=== PATIENT | male | born 1970 | race Caucasian/White ===

== ENCOUNTER → 2019-09-02 11:26 | Outpatient (BNVA) | payer SELFPAY | PROVIDERS: Family Provider Family Medicine; PCP Family Medicine; Visit Provider Nurse Practitioner Family | DX: I10 Essential (primary) hypertension (principal); F41.9 Anxiety disorder, unspecified; Z79.899 Other long term (current) drug therapy; E78.5 Hyperlipidemia, unspecified | CPT/HCPCS: 80048; 80061 ==

== ENCOUNTER → 2020-05-14 09:25 | Outpatient (BNVA) | payer SELFPAY | PROVIDERS: Family Provider Family Medicine; PCP Family Medicine; Visit Provider Nurse Practitioner Family | DX: Z51.81 Encounter for therapeutic drug level monitoring (principal) | CPT/HCPCS: 80053 ==

== ENCOUNTER → 2021-06-14 08:59 | Outpatient (BNVA) | payer SELFPAY | PROVIDERS: Family Provider Family Medicine; PCP Family Medicine; Visit Provider Nurse Practitioner Family | DX: Z02.4 Encounter for examination for driving license (principal); E78.2 Mixed hyperlipidemia; I10 Essential (primary) hypertension | CPT/HCPCS: 80053; 80061 ==

== ENCOUNTER → 2021-12-14 14:12 | Outpatient (BNVA) | payer SELFPAY | PROVIDERS: Family Provider Family Medicine; PCP Nurse Practitioner Family; Visit Provider Nurse Practitioner Family | DX: I10 Essential (primary) hypertension (principal); E78.2 Mixed hyperlipidemia; F41.9 Anxiety disorder, unspecified | CPT/HCPCS: 80053; 80061 ==

== ENCOUNTER → 2022-02-07 11:38 | Outpatient (BNVA) | payer SELFPAY | PROVIDERS: Family Provider Family Medicine; PCP Nurse Practitioner Family; Visit Provider Nurse Practitioner Family | DX: E78.2 Mixed hyperlipidemia (principal) | CPT/HCPCS: 80061; 82977; 83615; 84450; 84460 ==

== ENCOUNTER 2022-04-19 13:56 | Outpatient (CLI) | payer OTHER, SELFPAY ==
--- NOTE | 2022-04-19 14:30 | MR_ITS ---
WS: [id number] MRI THORACIC SPINE WITHOUT CONTRAST TECHNIQUE: Sagittal T1, T2 and STIR imaging. Axial T2 imaging. Noncontrast imaging obtained. CLINICAL INFORMATION: M54.6 - Pain in thoracic spine COMPARISON: None. FINDINGS: Mild thoracic curve. Mild thoracic kyphosis. No acute compression fractures. Cord signal is normal. Mild central canal stenosis T9-T10. Moderate central canal stenosis T10-T11 with moderate facet arthr opathy and ligamentum flavum hypertrophy. Prominent facet arthropathy ligamentum flavum hypertrophy T3-T4, T4-T5, T5-T6 eccentric to the LEFT, T6-T7 T9-T10 and T10-T11. Central canal stenosis at T10-T11 appears unchanged since the prior lumbar spine MRI 2019. Mild central canal stenosis at T9-T10 and moderate central canal stenosis at T10-T11. Mild bilateral T10-T11 bony foraminal narrowing. Shallow central protrusion cervical spine sld teacher imaging at C3-C4 with slight contact of the cervical cord and mild to moderate central canal stenosis. Adrenal glands are normal. Normal caliber thoracic aorta. MR/MR thoracic spin wo con* [id number] IMPRESSION: 1. Mild thoracic curve. Mild thoracic kyphosis. No acute compression fractures . 2. Prominent facet arthropathy with ligamentum flavum flavum hypertrophy at m ultiple levels worse at T9-T10 and T10-T11. Mild central canal stenosis T9-T10 and moderate central canal stenosis T10-T11. 3. Additional prominent areas of facet arthropathy and ligamentum flavum hyper trophy described above at T3-T4, T4-T5, T5-T6 eccentric to the LEFT, and T6-T7 4. Mild bilateral bony foraminal narrowing T10-T11. 5. Small central disc protrusion C3-C4 with slight contact of the cervical cor d and mild to moderate central canal stenosis. This can be further evaluated wi cervical spine MRI.
== END 2022-04-19 13:57 | disposition home or self-care (01) ==
PROVIDERS: PCP Nurse Practitioner Family; Visit Provider Nurse Practitioner Family
DX: M54.6 Pain in thoracic spine (principal)
CPT/HCPCS: 72146

== ENCOUNTER 2022-05-18 07:34 | Outpatient (CLI) | payer OTHER, SELFPAY ==
--- NOTE | 2022-05-18 08:00 | MR_ITS ---
WS: [id number] MRI CERVICAL SPINE NONCONTRAST TECHNIQUE: Sagittal T1, T2 and STIR imaging. Axial T2, gradient, and fiesta imaging. CLINICAL INFORMATION: M50.90 - Cervical disc disorder, unspecified, unspecified... COMPARISON: None. FINDINGS: Straightening of the normal cervical lordosis. Disc bulging worse at C3-C4 with indentation on cervic al cord. Mild central canal stenosis. Cord signal is normal. C2-C3: Mild LEFT foraminal narrowing. Mild facet arthropathy. Spinal canal and RIGHT foramen are salvador nt. C3-C4: Broad-based central disc protrusion with indentation on cervical cord. Moderate central canal stenosis progressed compared to previous. Mild facet arthropathy. Mild LEFT and no significant RIGHT foraminal narrowing. C4-C5: Tiny shallow central protrusion. Slight contact of the cervical cord. Mild central canal steno sis. This is progressed compared to previous. Moderate facet arthropathy. Mild RIGHT greater than LEF T foraminal narrowing. C5-C6: Disc osteophyte complex with endplate ridging. Spinal canal is patent. Moderate RIGHT and mild LEFT foraminal narrowing. Moderate facet arthropathy. C6-C7: Tiny shallow LEFT pericentral protrusion. Slight contact of the cervical cord. Spinal canal is patent. Mild facet arthropathy. Mild bilateral bony foraminal narrowing. C7-T1: Mild LEFT bony foraminal narrowing with slight encroachment on the exiting LEFT C8 nerve root. Spinal canal and RIGHT foramen are patent. Mild facet arthropathy. Visualized brain stem structures: Normal. Prevertebral soft tissues: Normal. MR/MR cervical spin wo con* [id number] IMPRESSION: 1. Straightening of the normal cervical lordosis. 2. Moderate central canal stenosis C3-C4 with central disc protrusion progress ed compared to previous. 3. Tiny central protrusion C4-C5 with mild central canal stenosis and slight i ndentation on cervical cord new compared to previous. 4. Tiny LEFT pericentral protrusion with slight indentation on the cervical co rd at C6-C7 progressed compared to previous. 5. Mild bony foraminal narrowing worse at LEFT C3-C4, RIGHT C4-C5, and bilater al C5-C6 worse in the RIGHT. Mild to moderate bilateral C6-C7 and mild LEFT C7- T1 foraminal narrowing.
== END 2022-05-18 07:35 | disposition home or self-care (01) ==
PROVIDERS: PCP Nurse Practitioner Family; Visit Provider Nurse Practitioner Family
DX: M48.02 Spinal stenosis, cervical region (principal); M50.023 Cervical disc disorder at C6-C7 level with myelopathy
CPT/HCPCS: 72141

== ENCOUNTER → 2022-06-08 08:22 | Outpatient (BNVA) | payer OTHER, SELFPAY | PROVIDERS: PCP Nurse Practitioner Family; Referring Provider Nurse Practitioner Family; Visit Provider Physician Assistant | DX: M50.20 Other cervical disc displacement, unspecified cervical region (principal) | CPT/HCPCS: 72050 ==

== ENCOUNTER 2022-06-28 19:03 | Inpatient (IN) | payer OTHER, SELFPAY ==
[2022-06-26 09:51] VITALS: BMI 32.8
--- NOTE | 2022-06-26 10:06 | ANES.PREANE2 ---
Pre-Anesthetic Assessment Height/Weight: Height 1.8 m Weight 106.594 kg Operation Date: 06/28/22 13:45 Proposed Procedures p Spinal Fusion: T10-T11 fusion with decompression,[id number],M50.20, M48.04(Not Applicable) - Agustin Griffin DO s Thoracic Decompression(Not Applicable) - Agustin Griffin, Familial anesthetic complications: None Social Tobacco (chews) and No alcohol Exam alert, oriented x 3, clear to auscultation bilaterally and regular rate & rhythm Airway Mallampati: Class III Dentition: chipped and partials Pulmonary None reported CV/HEM Hypertension None reported Hepatic None reported GI None reported Metabolic None reported Musc/skel Lower Back Pain neck pain Neuropsych Anxiety Anesthetic Plan ASA status: 2 Anesthesia: General Risk of > 500 ml blood loss (7ml/kg in children): No Medications/Allergies Home Medications Medication Instructions Recorded Confirmed Last Taken Type amlodipine 10 mg tablet See Rx Instructions .Route 02/02/22 06/26/22 06/25/22 Rx .COMPLEX #180 tabs buspirone 30 mg tablet 30 mg PO BID #180 tabs 02/02/22 06/26/22 06/26/22 Rx metoprolol tartrate 50 mg tablet 50 mg PO BID #180 tabs 02/02/22 06/26/22 06/25/22 Rx telmisartan 80 mg tablet See Rx Instructions .Route 02/02/22 06/26/22 06/26/22 Rx .COMPLEX #90 tabs simvastatin 10 mg tablet See Rx Instructions .Route 06/05/22 06/26/22 06/25/22 Rx .COMPLEX #60 tabs meloxicam 7.5 mg tablet See Rx Instructions .Route 06/06/22 06/26/22 06/26/22 Rx .COMPLEX #30 tabs Allergies Allergy/AdvReac Type Severity Reaction Status Date / Time No Known Allergies Allergy Verified 06/08/22 08:19 [facility], [facility] Anesthesia Medical History Anxiety HTN (hypertension) Hyperlipidemia Family History Father CAD (coronary artery disease) Hypertension Mother Cancer colon cancer Grandmother Stroke CAD (coronary artery disease) Hypertension Family/Other Cancer Diabetes Hypertension Lung disease Stroke Grandfather Diabetes Hypertension Brother Hypertension Denies family history of Dementia Chronic kidney disease (CKD) Social History Smoking and tobacco status: former smoker Alcohol intake: current Alcohol intake frequency: few times a month Adopted: No Lives independently: Yes Household members: spouse Housing: House Marital status: Data Anesthesia 06/26/22 10:00 Cardiac Studies: No Data to Display
[2022-06-26 10:25] LABS: Blood Urea Nitrogen 9 mg/dL (6-20); Calcium 9.3 mg/dL (8.5-10.5); Carbon Dioxide 26 mmol/L (22-29); Chloride 98 mmol/L (98-107); Glomerular Filtration Rate 78.8 mL/min (90-130); Glucose 118 mg/dL (65-115); Osmolality Calculated 276 mOsm/kg (285-295); Sodium 133 mmol/L (136-145)
[2022-06-28] VITALS (17 sets, daily range): BP systolic 94–164; BP diastolic 53–98; PULSE 62–79; RESP 16–22; TEMP -12.6–37.2; O2SAT 91–99; BMI 32.8
[2022-06-28] MEDS: sodium chloride 0.9% 1,000 ML 30 ML IV (15:26)
[2022-06-28] MEDS: midazolam 1 mg/mL INJ 2 mL 2 MG IVP ×2 (15:29→19:29)
--- NOTE | 2022-06-28 16:55 | W.PM.OPSUD ---
Surgery/Procedure H&P Update DATE OF PROCEDURE: June 28, 2022 DATE H&P PERFORMED: 06/08/22 H&P UPDATE INFORMATION: I have reviewed H&P completed within last 30 days, I have examined patient prior to procedure and No changes to prior documentation PREOP DIAGNOSIS: DDD thoracic, Thoracic stenosis PLANNED PROCEDURE: Operation Date: 06/28/22 18:35 Proposed Procedures p Spinal Fusion: T10-T11 fusion with decompression,[id number],M50.20, M48.04(Not Applicable) - DO lexie Rapp Thoracic Decompression(Not Applicable) - Agustin Griffin DO
--- NOTE | 2022-06-28 16:56 | P.ANESUD_ITS ---
Pre-Anesthetic Update Pre-Anesthetic Assessment: Date of Surgery/Procedure: 06/28/22 Preop Daria gnosis: DDD thoracic, Thoracic stenosis Proposed Procedure: Operation Date: 06/28/22 18:35 Proposed Procedures p Spinal Fusion: T10-T11 fusion with decompression,[id number],57897,47150,M50.20, M48.04(Not Applicable) - Agustinmicheal Griffin, DO s Thoracic Decompression(Not Applicable) - Agustin H Gaby, DO Any changes to Pre-Anesthetic Assessment?: No Last Intake: Intake Last Liquid Date 06/28/22 Last Liquid Time 10:45 Last Solid Date 06/27/22 Last Solid Time 21:00 Vitals: Temperature 98.7 F 06/28/22 15:15 Temperature Source Temporal Artery S can 06/28/22 15:15 Pulse Rate 72 06/28/22 15:15 Respiratory Rate 18 06/28/22 15:15 Blood Pressure 164/98 06/28/22 15:15 Blood Pressure [place] n 120 06/28/22 15:15 Pulse Oximetry 96 06/28/22 15:15 Oxygen Delivery Me thod Room Air 06/28/22 15:18 Exam: Pre-Anes Outpt Exam: alert, oriented x 3, clear to auscultation bilaterally and regular rate & rhythm Cardiac Studies: No Data to Display
[2022-06-28] MEDS: ceFAZolin 2,000 MG in sodium chloride 0.9% (plus) 50 ML 100 MG IV (17:04)
[2022-06-28] MEDS: lidocaine-epi 1% 20 mL INJ (18:13)
[2022-06-28] MEDS: vancomycin 1,000 MG SDV 1000 MG XX (18:15)
--- NOTE | 2022-06-28 18:56 | XR_ITS ---
WS: [id number] EXAMINATION: XR lumbar spine 2-3V* [id number] REASON FOR EXAM: OR PICS COMPARISON: None available. ORDER DATE: 06/28/2022 6:57 PM FINDINGS: Motion artifact noted on this study of the upper lumbar region XR/XR lumbar spine 2-3V* [id number] IMPRESSION: Total fluoroscopy time 17 seconds
--- NOTE | 2022-06-28 19:02 | PM.OP ---
Operative Report Date of procedure: June 28, 2022 Pre-op diagnosis: Preop Diagnosis DDD thoracic, Thoracic stenosis with claudication Post-op diagnosis: same Procedure done: 1. T10-T11 posteriorolateral fusion 2. T10 -T11 instrumentation 3. T10/11 Laminectomy with partial facetectomy 4. Use of computer navigation/ stereotactic for spine 5. use of auto graft 6 use of allograft Surgeon: Agustin Griffin Futures Trader: Deepak Caraballo Futures Trader: The surgical product sales consultant, Deepak Caraballo, SUHA was needed for his expertise under the microscope. He was important and necessary throughout the procedure to complete in a safe and timely manner. He assisted with patient positioning prepping and draping tissue retraction suctioning of the operative field protection of the dural sac and tissue closure Estimated blood loss (mL): 100 Procedure: 1. T10-T11 posteriorolateral fusion 2. T10 -T11 instrumentation 3. T10/11 Laminectomy with partial facetectomy 4. Use of computer navigation/ stereotactic for spine 5. use of auto graft 6 use of allograft Patient brought to the procedure after undergoing anesthesia was placed in the prone position. All pressure well-padded patient's Muscle fashion. The T10-11 level was identified. Skin incision made from T10 down to T11. Retractors were placed subperiosteal dissection was made out to the T10 and T11 spinous process and transverse process bilaterally. The spinous process clamp was placed on the T12 spinous process. Fusion was attached to the spinous process. The fiducial was then used for computer navigation. The C-arm was brought in and spun around the patient and the information from the serum was sent to the computer link to the fiducial this was allowing is able to be able to use computer navigation to place the pedicle screws. Screws were placed. This was done by using the gearshift probe linked to computer navigation followed by the pedicle feeler followed by placement of the screw. This was done at T10 bilaterally and T11 bilaterally. Next attention was brought to doing the will laminectomy and partial facetectomy at T10-11. This was done by biting down the T10 spinous process. Using a high-speed bur to take down the lamina of T10. This was done thinning of the bone. Then the Kerrison rongeur was used to take the lamina down. And then the facets were taken down medially. The facets have significant overgrowth which was compressing into the spinal cord. The facet was thinned down and Kerrison rongeur was used to carefully take down the medial aspect of facet joint L2 from pedicle to pedicle. This was done bilaterally the T10 nerve was traced out the foramen of T10-11 felt to be adequate decompressed at this central stenosis was completely freed up and the T11 nerve was traced around the T11 pedicle this was done bilaterally. Next the bone was decorticated the transverse processes of T10 and T11. The OsteoMed bone graft and autograft packed into these gutters. The autograft was taken from the lamina. This was done bilaterally. Wound was then closed in layered fashion with 0 Vicryl 2-0 Vicryl Monocryl suture. Sterile dressings were applied patient was transferred to the PACU in stable condition.
[2022-06-28] MEDS: fentaNYL 50 mcg/mL INJ 2mL 100 MCG IVP (19:28)
--- NOTE | 2022-06-28 20:13 | PM.PACU ---
PACU note Exam: awake and vital signs stable Disposition: admitted
--- NOTE | 2022-06-28 20:39 | PC.NURSE ---
Spoke to Dr. Griffin regarding Heparin infusion order that had not been given or started for clarification. Physician clarifies med is not to be given. Non admin charted in MAR.
[2022-06-28] MEDS: atorvastatin 40 mg Tablet 20 MG PO (20:53)
[2022-06-28] MEDS: ketorolac 30 mg/mL INJ IVP (20:54)
[2022-06-28] MEDS: HYDROcodone-acetaminophen 5-325 mg Tablet PO (20:54)
[2022-06-28] MEDS: metoprolol tartrate 50 mg Tablet PO (20:55)
[2022-06-28] MEDS: lactated ringers 1,000 ML 90 ML IV (20:55)
[2022-06-28] MEDS: amlodipine 10 mg Tablet PO (20:55)
--- NOTE | 2022-06-28 21:24 | PC.NURSE ---
call out operator physician Dr. Santiago requests Dr. Griffin be called for any further patient needs.
[2022-06-29] MEDS: HYDROcodone-acetaminophen 5-325 mg Tablet PO ×3 (01:25→10:19)
[2022-06-29] MEDS: ceFAZolin 2,000 MG in sodium chloride 0.9% (plus) 50 ML 100 MG IV ×2 (01:26→07:53)
[2022-06-29 01:50] VITALS: BP 128/77; PULSE 78; RESP 18; O2SAT 94
[2022-06-29] MEDS: lactated ringers 1,000 ML 90 ML IV (01:59)
[2022-06-29 03:50] VITALS: BP 109/66; PULSE 69; RESP 18; O2SAT 95
[2022-06-29 06:00] VITALS: BP 105/64; PULSE 62; RESP 17; O2SAT 93
--- NOTE | 2022-06-29 07:25 | PM.PN ---
Subjective Subjective: POD 1 Patient resting comfortably. Reports improvement of his leg pain reports moderate back pain. Denies any shortness of breath, chest pain, headaches. Vitals/I&O/Wt Last Vital Signs Temp 97.7 F 06/28/22 20:50 Pulse 62 06/29/22 06:00 Resp 17 06/29/22 06:00 BP 105/64 06/29/22 06:00 Pulse Ox 93 06/29/22 06:00 O2 Del Method Nasal Cannula 06/29/22 06:00 O2 Flow Rate 2 06/29/22 06:00 06/28/22 06/29/22 06/29/22 22:59 06:59 14:59 Intake Total 616.5 / 616.5 506 / 1122.5 Output Total 450 / 450 1250 / 1700 Balance 166.5 / 166.5 -744 / -577.5 Weight last 48 hrs Weight 235 lb Weight 235 lb Physical Exam Narrative: Patient presents alert and oriented x3 with a good general appearance normal mood and affect. Normal coordination normal stability. Mild tenderness around the incisional site with the incision appear to be clean and dry. No signs of erythema or drainage. No signs of infection. Patient denies any fevers or chills. 5/5 motor strength both lower extremities with negative straight leg raise bilaterally. Calves are supple no medial thigh tenderness. Pulses are 2+ at the dorsalis pedis and posterior tibial region. Good capillary refill throughout normal sensation light touch both lower extremities. Urinary Catheter Management: Manning: Cath Placed During This Visit: yes, but has since been removed by the nurse Reason for Continuing Indwelling Catheter: Perioperative Use in Selected Surgeries Urinary Catheter Date of Insertion: 06/28/22 Urinary Catheter Time of Insertion: 17:10 Date Urinary Catheter Removed: 06/28/22 Time Urinary Catheter Discontinued: 21:00 Data 06/26/22 10:00 A&P Assessment and plan (1) S/P spinal fusion: Physical therapy to consult for mobilization. Discussed no bending lifting or twisting. Continue incentive spirometry for pulmonary toilet. Continue SCDs for mechanical DVT prophylaxis. We will see him back in 1 week's time for wound check. Discharge home after physical therapy consultation. Attestations Medical Necessity Statement*: Discharge home later this morning. Coding Level of Care Code Acute Code for Chg Fwd Diagnoses S/P spinal fusion Z98.1
[2022-06-29] MEDS: ketorolac 30 mg/mL INJ IVP (07:54)
[2022-06-29] MEDS: docusate sodium 100 mg Capsule PO (07:55)
[2022-06-29] MEDS: BuSPIRONE 10 mg Tablet 30 MG PO (07:55)
[2022-06-29 08:27] VITALS: BP 128/76; PULSE 66; RESP 17; TEMP 36.8; O2SAT 93
[2022-06-29 10:41] VITALS: BP 128/76; PULSE 66; RESP 17; TEMP 36.8; O2SAT 93
== END 2022-06-29 10:42 | disposition home or self-care (01) | DRG 460 ==
LOC: MEDSURG 19:37
PROVIDERS: Anesthesiology; Admitting Provider Orthopaedic Surgery; PCP Nurse Practitioner Family; Visit Provider Orthopaedic Surgery
PROC: 0RG6071 Fusion of Thoracic Vertebral Joint with Autologous Tissue Substitute, Posterior Approach, Posterior Column, Open Approach (ICD-10-PCS; principal; 2022-06-28 18:05)
PROC: 0RG6071 Fusion of Thoracic Vertebral Joint with Autologous Tissue Substitute, Posterior Approach, Posterior Column, Open Approach (ICD-10-PCS; CPT 63003; 2022-06-28 18:05)
DX: M51.34 Other intervertebral disc degeneration, thoracic region (principal); M48.04 Spinal stenosis, thoracic region; F17.220 Nicotine dependence, chewing tobacco, uncomplicated; I10 Essential (primary) hypertension; F41.9 Anxiety disorder, unspecified; E78.5 Hyperlipidemia, unspecified
CPT/HCPCS: 36592; 51702; 72100; 76000; 80048; 97116; 97161; C1713; C9359; J0690; J1100; J1170; J1885; J2250; J2405; J2704; J2710; J3010; J3370; J3490; J7030; J7120

== ENCOUNTER → 2022-07-11 11:04 | Outpatient (BNVA) | payer OTHER, SELFPAY | PROVIDERS: PCP Nurse Practitioner Family; Visit Provider Physician Assistant | DX: Z98.1 Arthrodesis status (principal); M48.04 Spinal stenosis, thoracic region | CPT/HCPCS: 72070 ==

== ENCOUNTER → 2022-08-08 09:46 | Outpatient (BNVA) | payer OTHER, SELFPAY | PROVIDERS: PCP Nurse Practitioner Family; Visit Provider Physician Assistant | DX: Z98.1 Arthrodesis status (principal) | CPT/HCPCS: 72070 ==

== ENCOUNTER → 2022-09-26 09:38 | Outpatient (BNVA) | payer OTHER, SELFPAY | PROVIDERS: PCP Nurse Practitioner Family; Visit Provider Physician Assistant | DX: M48.04 Spinal stenosis, thoracic region (principal); Z98.1 Arthrodesis status | CPT/HCPCS: 72070 ==

== ENCOUNTER 2023-03-02 11:55 | Outpatient (CLI) | payer OTHER, SELFPAY ==
[2023-03-02 12:36] LABS: Basophils # 0.1 10^3/uL (0.0-0.1); Basophils % 0.6 %; Eosinophils # 0.2 10^3/uL (0.0-0.8); Eosinophils % 2.2 %; Lymphocytes # 3.1 10^3/uL (0.8-4.8); Lymphocytes % 32.2 %; Mean Corpuscular HGB Conc 33.5 g/dL (30-55); Mean Corpuscular Hemoglobin 30.9 pg (27-33); Mean Corpuscular Volume 92.4 fl (82-101); Monocytes # 0.9 10^3/uL (0.2-0.9); Monocytes % 9.6 %; Neutrophils # 5.34 10^3/uL (1.8-7.7); Neutrophils % 55.2 %; Nucleated Red Blood Cells % 0 %; Platelet Count 301 10^3/cmm (157-399); Red Blood Count 4.98 10^6/uL (3.85-5.65); Red Cell Distribution Width 11.9 % (12.1-15.1); White Blood Count 9.68 10^3/uL (3.29-11.43)
[2023-03-02 12:58] LABS: Alanine Aminotransferase 56 U/L (0-41); Albumin Level 4.6 g/dL (3.5-5.2); Alkaline Phosphatase 105 U/L (40-130); Anion Gap 14.2 (5-19); Aspartate Amino Transferase 47 U/L (0-40); Blood Urea Nitrogen 10 mg/dL (6-20); Calcium 9.7 mg/dL (8.5-10.5); Carbon Dioxide 27 mmol/L (22-29); Chloride 102 mmol/L (98-107); Glomerular Filtration Rate 78.5 mL/min (90-130); Glucose 84 mg/dL (65-115); Osmolality Calculated 286 mOsm/kg (285-295); Potassium 4.2 mmol/L (3.5-5.1); Sodium 139 mmol/L (136-145); Total Bilirubin 0.6 mg/dL (0.15-1.2); Total Protein 7.6 g/dL (6.6-8.7)
[2023-03-02 13:46] LABS: Add Urine Microscopic? NO; Charge for UA Resulting for Rev
[2023-03-02 13:58] LABS: Bilirubin Urine Neg (Negative); Blood Urine Neg (Negative); Glucose Urine UA Norm (Normal); Ketones Urine Negative (Negative); Leukocyte Esterase Urine Negative (Negative); Nitrate Urine Negative (Negative); Protein Urine Neg (Negative); Specific Gravity, Urine 1.005 (1.005-1.030); Urine Appearance Clear (CLEAR); Urine Color Straw (Yellow); Urobilinogen Urine Neg (Negative); pH Urine 5 (5-7)
== END 2023-03-02 11:56 | disposition home or self-care (01) ==
LOC: LAB 11:56
PROVIDERS: PCP Nurse Practitioner Family; Visit Provider Physician Assistant
DX: M50.90 Cervical disc disorder, unspecified, unspecified cervical region (principal)
CPT/HCPCS: 80053; 81003; 85025

== ENCOUNTER 2023-04-02 08:08 | Day surgery (SDC) | payer OTHER, SELFPAY ==
[2023-04-02] VITALS (16 sets, daily range): BP systolic 101–133; BP diastolic 59–77; PULSE 55–68; RESP 12–22; TEMP 36.1–36.6; O2SAT 95–100; BMI 33.2
--- NOTE | 2023-04-02 | XR_ITS ---
WS: [id number] INTRAOPERATIVE TECHNIQUE: 3 Spot fluoroscopic images for intraoperative purposes. FLUOROSCOPY TIME: 12.8 seconds CLINICAL INFORMATION: ACDF, or pic COMPARISON: None. FINDINGS: Intraoperative changes ACDF C3-4 with interbody fusion graft. Endotracheal tube. IMPRESSION: Images obtained for intraoperative purposes.
[2023-04-02] MEDS: sodium chloride 0.9% 1,000 ML 30 ML IV (09:08)
--- NOTE | 2023-04-02 09:11 | ANES.PREANE2 ---
Pre-Anesthetic Assessment Height/Weight: Height 1.8 m Weight 107.955 kg Temp Pulse Resp BP Pulse Ox O2 Del Method 97.9 F 66 16 102/76 100 Room Air 04/02/23 08:40 04/02/23 08:40 04/02/23 08:40 04/02/23 08:40 04/02/23 08:40 04/02/23 08:40 Preop Diagnosis: Cervical spondylosis with myelopathy Operation Date: 04/02/23 10:30 Proposed Procedures p ACDF w/ Cage w/ Instrumentation w/ Allograft w/ Navigation(C3-4)(Not Applicable) - Agustin Griffin, DO Familial anesthetic complications: None Was Beta Lisbet taken within 24 hours: Yes Was Clonidine taken within 24 hours: N/A Last intake: Intake Last Liquid Date 04/01/23 Last Liquid Time 22:00 Last Solid Date 04/01/23 Last Solid Time 17:00 Social Tobacco (chews) and No alcohol Exam alert, oriented x 3, clear to auscultation bilaterally and regular rate & rhythm Airway Mallampati: Class II Dentition: chipped and partials CV/HEM Hypertension Metabolic Hyperlipidemia Musc/skel Lower Back Pain Anesthetic Plan ASA status: 2 Anesthesia: General Risk of > 500 ml blood loss (7ml/kg in children): Yes, adequate IV access and fluids planned Medications/Allergies Home Medications Medication Instructions Recorded Confirmed Last Taken Type amlodipine 10 mg tablet See Rx Instructions .Route 02/02/22 04/02/23 04/02/23 06:00 Rx .COMPLEX #180 tabs buspirone 30 mg tablet 30 mg PO BID #180 tabs 02/02/22 04/02/23 04/02/23 06:00 Rx metoprolol tartrate 50 mg tablet 50 mg PO BID #180 tabs 02/02/22 04/02/23 04/02/23 06:00 Rx intraoperative neuromonitoring #1 ea 06/28/22 02/27/23 Unknown Rx Bone growth stimulator #1 ea 01/26/23 02/27/23 Unknown Rx simvastatin 10 mg tablet See Rx Instructions .Route 01/29/23 03/30/23 04/01/23 Rx .COMPLEX #90 tabs hydrocodone 5 mg-acetaminophen 325 1 tab PO .Q4-6H PRN Neck pain 5 02/27/23 04/02/23 04/01/23 Rx mg tablet days #30 tabs telmisartan 80 mg tablet See Rx Instructions .Route 03/09/23 03/30/23 04/01/23 Rx .COMPLEX #30 tabs tramadol 50 mg tablet 50 mg PO Q8H PRN pain 7 days #21 03/26/23 03/30/23 04/01/23 Rx tabs Allergies Allergy/AdvReac Type Severity Reaction Status Date / Time No Known Allergies Allergy Verified 03/30/23 16:42 Current Medications Generic Name Dose Route Start Last Admin Trade Name Freq PRN Reason Stop Dose Admin Sodium Chloride 1,000 mls @ 30 mls/hr 04/02/23 08:30 04/02/23 09:08 Sodium Chloride 0.9% IV 04/03/23 08:29 30 mls/hr .Q24H ENE Administration PFSH Anesthesia Medical History HTN (hypertension) Anxiety Hyperlipidemia Family History Father CAD (coronary artery disease) Hypertension Mother Cancer colon cancer Grandmother Stroke CAD (coronary artery disease) Hypertension Family/Other Cancer Diabetes Hypertension Lung disease Stroke Grandfather Diabetes Hypertension Brother Hypertension Denies family history of Dementia Chronic kidney disease (CKD) Social History Smoking and tobacco/nicotine status: former use of tobacco/nicotine Alcohol intake: current Alcohol intake frequency: few times a month Substance/Drug Use: never Adopted: No Lives independently: Yes Household members: spouse Housing: House Marital status: Data Anesthesia Cardiac Studies: No Data to Display
--- NOTE | 2023-04-02 10:00 | W.PM.OPSUD ---
Surgery/Procedure H&P Update DATE OF PROCEDURE: April 02, 2023 DATE H&P PERFORMED: 03/27/23 H&P UPDATE INFORMATION: I have reviewed H&P completed within last 30 days, I have examined patient prior to procedure and No changes to prior documentation PREOP DIAGNOSIS: Cervical spondylosis with myelopathy PLANNED PROCEDURE: Operation Date: 04/02/23 10:30 Proposed Procedures p ACDF w/ Cage w/ Instrumentation w/ Allograft w/ Navigation(C3-4)(Not Applicable) - Agustin Griffin DO
[2023-04-02] MEDS: ceFAZolin 2,000 MG in sodium chloride 0.9% (plus) 50 ML 100 MG IV (10:23)
[2023-04-02] MEDS: lidocaine-epi 1% 20 mL INJ INJECTION (11:17)
--- NOTE | 2023-04-02 12:06 | PM.OP ---
Operative Report Date of procedure: April 02, 2023 Pre-op diagnosis: Cervical spondylosis with radiculopathy and myelopathy Post-op diagnosis: same Procedure done: 1. Anterior diskectomy C3/4 2. Insertion of cage C3/4 3. Instrumentation with anterior plate from C3-4 4. Use of allograft Surgeon: Agustin Griffin DO Estimated blood loss (mL): 25 Procedure: 1. Anterior diskectomy C3/4 2. Insertion of cage C3/4 3. Instrumentation with anterior plate from C3-4 4. Use of allograft The patient was taken to the operating room, where he underwent general endotracheal anesthesia without complications. He was then positioned supine on the operating table, and all areas of impingement were well padded. The arms were carefully padded and tucked at his sides. A roll was placed between the shoulder blades.. An x-ray was done to determine the appropriate level for the skin incision. The entire neck was then sterilely prepped and draped in the usual fashion. Neuromonitoring was attached prior to prepping. A transverse skin incision was made and carried down to the platysma muscle. This was then split in line with its fibers. Blunt dissection was carried down medial to the carotid sheath and lateral to the trachea and esophagus until the anterior cervical spine was visualized. A needle was placed into a disc and an x-ray was done to determine its location. The longus colli muscles were then elevated bilaterally with the electrocautery unit. Self-retaining retractors were placed deep to the longus colli muscle. Attention was brought to the C3-4 level that was confirmed on x-ray. A caspar pin was placed into the C3 vertebrae and the C4 vertebrae. The disk space was then distracted. The microscope was then brought in. A radical anterior discectomies were performed at C3/4. This included complete removal of the anterior annulus, nucleus, and posterior annulus. The posterior longitudinal ligament was removed as were the posterior osteophytes. Foraminotomies were then accomplished bilaterally. This was done using a high speed howard, kerrison rongeurs and curretes Once all of this was accomplished, the curved currette was used to check for any residual compression. The central canal was wide open as were the foramen. A high-speed bur was used to remove the cartilaginous endplates above and below the interspace. Bleeding cancellous bone was exposed. The disc space were measured and appropriate size cage were placed sterilely onto the field. Allograft graft was packed into the cages. The cage was then placed and there was good juxtaposition against the bleeding decorticated surfaces and good distraction of each interspace. The Pemberton pins were removed. Bone wax was used to prevent any bleeding from occurring at the pin sites. The appropriate size anterior cervical locking plate was chosen and bent into gentle lordosis. Two screws were then placed into each of the vertebral bodies at []. There was excellent purchase. A final x-ray was done confirming good position of the hardware and Cages. The locking screws were then applied, also with excellent purchase. Following a final copious irrigation, there was good hemostasis and no dural leaks. The carotid pulse was strong. The wounds were then closed in layers using 2-0 Vicryl suture for the platysma muscle, 2-0 Vicryl suture for the subcutaneous tissue, and 4-0 monocryl suture in a subcuticular skin closure. Glue was placed followed by application of a sterile dressing. The drain was hooked to bulb suction. A soft collar was applied. The patient was then carefully returned to the supine position on his hospital bed where he was reversed and extubated and taken to the recovery room having tolerated the procedure well.
[2023-04-02] MEDS: fentaNYL 50 mcg/mL INJ 2mL IVP ×2 (12:25→12:31)
[2023-04-02] MEDS: HYDROmorphone 1 mg/mL INJ 1 mL 0.5 MG IVP (12:39)
[2023-04-02] MEDS: HYDROcodone-acetaminophen 10-325 mg Tablet 1 TAB PO (13:14)
--- NOTE | 2023-04-02 13:55 | ANE.PACU2 ---
Inpatient post-anesthesia follow up: Airway intact: Yes Vital signs: Temperature 97.5 F Pulse Rate 55 Respiratory Rate 16 Blood Pressure 133/62 Pulse Oximetry 95 Oxygen Delivery Me thod Room Air Oxygen Flow Rate 6 Fraction of Inspir ed Oxygen Hydration adequate: Yes Nausea and vomiting: No Pain level: 1 Mental status: Baseline
== END 2023-04-02 13:56 | disposition home or self-care (01) ==
PROVIDERS: PCP Nurse Practitioner Family; Visit Provider Orthopaedic Surgery
PROC: 0RB30ZZ Excision of Cervical Vertebral Disc, Open Approach (ICD-10-PCS; CPT 22551; principal; 2023-04-02 10:20)
DX: M47.22 Other spondylosis with radiculopathy, cervical region (principal); M47.12 Other spondylosis with myelopathy, cervical region; I10 Essential (primary) hypertension; E78.5 Hyperlipidemia, unspecified; F17.220 Nicotine dependence, chewing tobacco, uncomplicated; F41.9 Anxiety disorder, unspecified
CPT/HCPCS: 20930; 22551; 22845; 22853; 36415; 72040; 76000; 86850; 86900; C1713; C1763; C9359; J0330; J0690; J1100; J1170; J2250; J2405; J2704; J2710; J3010; J3490; J7030

== ENCOUNTER → 2023-04-17 13:58 | Outpatient (BNVA) | payer OTHER, SELFPAY | PROVIDERS: PCP Nurse Practitioner Family; Visit Provider Orthopaedic Surgery | DX: Z98.1 Arthrodesis status; Z47.89 Encounter for other orthopedic aftercare | CPT/HCPCS: 72040 ==

== ENCOUNTER → 2023-05-29 08:25 | Outpatient (BNVA) | payer OTHER, SELFPAY | PROVIDERS: PCP Nurse Practitioner Family; Visit Provider Orthopaedic Surgery | DX: M54.2 Cervicalgia (principal); Z98.1 Arthrodesis status | CPT/HCPCS: 72040 ==

== ENCOUNTER 2023-06-07 10:19 | Emergency (ER) | payer OTHER, SELFPAY ==
[2023-06-07] VITALS (8 sets, daily range): BP systolic 108–125; BP diastolic 68–85; PULSE 65–91; RESP 18–20; TEMP 36.4; O2SAT 92–97; BMI 33.2
--- NOTE | 2023-06-07 11:08 | XR_ITS ---
WS: [id number] Lumbar spine, 3 views upright, 06/07/2023 Clinical Data: pain,bilat radiculopathy, no trauma, hx surgery Comparison: Lumbar spine, 06/11/2018 Findings: No compression fractures or subluxation is seen. Degenerative disc narrowing at L5-S1 remains the darci e. There is anterior spurring of all the lumbar vertebral bodies. The transverse processes and SI sampson nts are normal. There is a posterior thoracic fusion. Impression: 1. Degenerative disc narrowing at L5-S1. 2. Osteoarthritic spurring of all the lumbar vertebral bodies.
--- NOTE | 2023-06-07 12:26 | ED_ITS ---
HPI - Back Pain/Injury General: Chief Complaint: Back Pain/Injury Stated Complaint: back pains Time Seen by Provider: 06/07/23 11:09 History of Present Illness: Patient presents to the ER with complaints of low back pain for about the last 3 days. Patient describes it as a pinching sensation neck and turned to a sharp stabbing take her to her knees type pain that radiates all the way down to both toes when it happens. Patient has seen Dr. Griffin and had surgery on his neck and upper back. Patient has appointment Dr. Griffin on June 27 for his neck. Patient says Dr. Avelar looked at his low back in the past. Patient denies any recent injury. Patient is no pain medicine at home. Patient only medicine for pain is cyclobenzaprine he says does not help. Review of Systems General: Reports: 10 or more systems reviewed and unremarkable except in HPI and below PFSH ED PFSH: Medical History HTN (hypertension) Anxiety Hyperlipidemia Family History Father CAD (coronary artery disease) Hypertension Mother Cancer colon cancer Grandmother Stroke CAD (coronary artery disease) Hypertension Family/Other Cancer Diabetes Hypertension Lung disease Stroke Grandfather Diabetes Hypertension Brother Hypertension Denies family history of Dementia Chronic kidney disease (CKD) Social History Smoking and tobacco/nicotine status: former use of tobacco/nicotine Alcohol intake: current Alcohol intake frequency: few times a month Substance/Drug Use: never Adopted: No Lives independently: Yes Household members: spouse Housing: House Marital status: Physical Exam Const: COMMON NORMALS: no acute distress, average body habitus, patient oriented x3, no limitations, healthy appearing and alert HENMT: COMMON NORMALS: normocephalic, atraumatic, hearing grossly normal bilaterally, external ears normal, Normal external nose present, moist oral mucous membranes and oropharynx normal HEAD & SCALP: normocephalic and atraumatic NOSE: Normal external nose present EXTERNAL EAR: Yes external ears normal Neck/C-Spine: COMMON NORMALS: no JVD OTHER: In [place] J type collar Chest: COMMONS NORMALS: normal inspection of the chest and normal palpation of entire chest wall Resp: COMMON NORMALS: normal respiratory effort, No retractions, No use of accessory muscles and clear to auscultation bilaterally AUSCULTATION: clear to auscultation bilaterally Cardio: COMMON NORMALS: no JVD, regular rate, regular rhythm, S1 normal heart sound present, S2 normal heart sound present, No gallops present (Cardio), No clicks present (Cardio), No murmurs present (Cardio) and No rub (Cardio) RATE: regular rate RHYTHM: regular rhythm HEART SOUNDS: S1 normal heart sound present and S2 normal heart sound present Back/Pelvis: OTHER: Tenderness to palpation starting about the upper lumbar area or about 2 inches below the healed incision of his thoracic area all the way down to his sacral area. There is tenderness over the spine itself as well as over the paraspinal musculature. He is crepitus deformity. Neuro: COMMON NORMALS: patient oriented x3 SENSORIUM/ORIENTATION: Yes alert Course Vital Signs: Vital signs: Vital Signs Temperature 97.6 F 06/07/23 10:31 Pulse Rate 65 06/07/23 14:09 Respiratory Rate 20 H 06/07/23 12:30 Blood Pressure 116/76 06/07/23 14:09 Pulse Oximetry 96 06/07/23 14:09 Oxygen Delivery Me thod Room Air 06/07/23 14:00 MDM - Back Pain/Injury Medical Decision Making Given 1 Percocet in ER and x-rays was obtained of his lumbar spine that showed degenerative disc narrowing and osteoarthritis otherwise no acute fractures. Patient said the pain was much improved after the Percocet. Patient be discharged home with a small prescription for Percocet and he is to follow back up with Dr. Griffin for further evaluation and treatment. Differential Diagnosis Likely lumbar radiculopathy and strain of lumbar region; Unlikely sciatica, renal colic, pyelonephritis, thoracic back pain, AAA or discitis Medical Records I reviewed the patient's medical records. Labs I reviewed the patient's lab results. All radiology interpretation(s) finalized by discharge Discharge Plan Discharge Patient Disposition: Home Clinical Impression: Lumbar back pain Condition: Stable Prescriptions: New Percocet 5-325 mg tablet 1 tab PO Q8H PRN (Reason: pain) Qty: 14 0RF No Action buspirone 30 mg tablet 30 mg PO BID Qty: 180 1RF (DME) Bone growth stimulator See Rx Instructions .Route .MEDSUPPLY Qty: 1 0RF Rx Instructions: As directed cyclobenzaprine 10 mg tablet 10 mg PO QPM simvastatin 10 mg tablet 10 mg PO QPM amlodipine 10 mg tablet 10 mg PO QPM telmisartan 80 mg tablet 80 mg PO QAM metoprolol tartrate 50 mg tablet 50 mg PO QPM (DME) intraoperative neuromonitoring See Rx Instructions .Route .MEDSUPPLY Qty: 1 0RF Rx Instructions: As directed Discharge Orders: Discharge ED (Routine); Ordered 06/07/23 Ordered By: Sina Garaz Referrals: Hortencia Bowman, [facility] [Primary Care Provider] - 1 week Patient Instructions: Back Pain (ED), Opioid Safety, Pain Management Activity Restrictions/Additional Instructions: Prescription for Percocet will be sent to your pharmacy. Your low back x-ray just showed degenerative changes and arthritis. Please follow up with your family practice physician in the next 7 days and keep the appointment you already have scheduled for Dr. Griffin. Coding Level of Care Code ED [employer] Manager for Karen Neumann
[2023-06-07] MEDS: oxyCODONE-APAP 5-325 mg Tablet 1 TAB PO (12:30)
== END 2023-06-07 14:10 | disposition home or self-care (01) ==
PROVIDERS: Emergency Provider Emergency Medicine; PCP Nurse Practitioner Family
DX: M54.50 Low back pain, unspecified (principal); Z87.891 Personal history of nicotine dependence; I10 Essential (primary) hypertension; E78.5 Hyperlipidemia, unspecified
CPT/HCPCS: 72100; 99283

== ENCOUNTER → 2023-06-12 10:52 | Outpatient (BNVA) | payer OTHER, SELFPAY | PROVIDERS: PCP Nurse Practitioner Family; Visit Provider Orthopaedic Surgery | DX: M54.50 Low back pain, unspecified (principal) | CPT/HCPCS: 72100 ==

== ENCOUNTER 2023-06-14 10:25 | Outpatient (CLI) | payer OTHER, SELFPAY ==
--- NOTE | 2023-06-14 11:00 | MR_ITS ---
WS: [id number] MRI LUMBAR SPINE NONCONTRAST HISTORY: back pain COMPARISON: MRI lumbar spine 06/11/2018 and recent radiographs 06/11/2013 TECHNIQUE: Sagittal and axial multisequence imaging is submitted. Postsurgical fusion hardware in the mid cervical spine. Additional surgical hardware is noted in the lower thoracic spine. 2 mm retrolisthesis of L5. No fractures or marrow edema. Moderate disc space narrowing and desiccation at L5-S1. Conus terminates normally at L1-2 disc level. L1-L2: Normal. L2-L3: Normal. L3-L4: Mild annular disc bulging and facet arthropathy. Ligamentum flavum and mild subarticular reces s and foraminal stenosis. Similar to the prior study. L4-L5: Mild annular disc bulging with a shallow central protrusion and annular tear. Disc encroachmen t upon the central canal and subarticular recesses. Minimal progression since the prior study. Marked facet joint arthritis does appear to have progressed slightly. Mild bilateral foraminal stenosis wit h mild progression since the prior study. L5-S1: Diffuse osteophytic ridging, annular disc bulging and a central disc protrusion. Disc protrusi on extends into the subarticular recesses contacting and slightly displacing the S1 nerve roots. Mild central with moderate to severe bilateral subarticular recess and foraminal stenosis. Stenosis has p rogressed since the prior study. Paravertebral soft tissues are negative. IMPRESSION: 1. L5-S1: Mild central stenosis with moderate to severe bilateral subarticular recess and foraminal stenosis. Subarticular recess and foraminal stenosis with mild progression since the prior study due to disc, osteophyte and facet arthritis. 2. L4-5: Mild bilateral foraminal stenosis with mild progression since the prior study. Mild central and subarticular recess encroachment also. 3. Facet joint arthropathy from L3-4 to L5-S1. 4. No acute fractures.
== END 2023-06-14 10:26 | disposition home or self-care (01) ==
LOC: RAD 10:25
PROVIDERS: PCP Nurse Practitioner Family; Visit Provider Orthopaedic Surgery
DX: M48.07 Spinal stenosis, lumbosacral region (principal); M47.896 Other spondylosis, lumbar region; M47.897 Other spondylosis, lumbosacral region
CPT/HCPCS: 72148

== ENCOUNTER → 2023-06-28 07:45 | Outpatient (BNVA) | payer OTHER, SELFPAY | PROVIDERS: PCP Nurse Practitioner Family; Visit Provider Orthopaedic Surgery | DX: Z98.1 Arthrodesis status (principal) | CPT/HCPCS: 72040 ==

== ENCOUNTER → 2023-08-09 10:07 | Outpatient (BNVA) | payer SELFPAY | PROVIDERS: PCP Nurse Practitioner Family; Visit Provider Orthopaedic Surgery | DX: Z98.1 Arthrodesis status (principal) | CPT/HCPCS: 72040 ==

== ENCOUNTER → 2023-09-04 10:11 | Outpatient (BNVA) | payer OTHER, SELFPAY | PROVIDERS: PCP Nurse Practitioner Family; Visit Provider Orthopaedic Surgery | DX: Z98.1 Arthrodesis status (principal); M54.9 Dorsalgia, unspecified | CPT/HCPCS: 72040; 72100 ==

== ENCOUNTER → 2023-10-25 11:17 | Outpatient (BNVA) | payer OTHER, SELFPAY | PROVIDERS: PCP Nurse Practitioner Family; Visit Provider Orthopaedic Surgery | DX: M54.50 Low back pain, unspecified (principal); M54.2 Cervicalgia; M54.6 Pain in thoracic spine | CPT/HCPCS: 72040; 72110 ==

== ENCOUNTER → 2023-12-06 07:41 | Outpatient (BNVA) | payer OTHER, SELFPAY | PROVIDERS: PCP Nurse Practitioner Family; Visit Provider Orthopaedic Surgery | DX: Z98.1 Arthrodesis status (principal) | CPT/HCPCS: 72100 ==

== ENCOUNTER → 2023-12-25 08:33 | Outpatient (BNVA) | payer OTHER, SELFPAY | PROVIDERS: PCP Nurse Practitioner Family; Visit Provider Family Medicine | DX: Z01.818 Encounter for other preprocedural examination (principal) | CPT/HCPCS: 80053; 81003; 85025 ==

== ENCOUNTER → 2024-01-25 09:04 | Day surgery (SDC) | payer OTHER, SELFPAY ==
[2024-01-25] VITALS (15 sets, daily range): BP systolic 93–124; BP diastolic 44–86; PULSE 55–91; RESP 12–20; TEMP 36.6; O2SAT 93–98; BMI 33.7
[2024-01-25] MEDS: sodium chloride 0.9% 1,000 ML 30 ML IV (09:51)
--- NOTE | 2024-01-25 10:39 | ANES.PREANE2 ---
Pre-Anesthetic Assessment Height/Weight: Height 1.8 m Weight 109.769 kg Temp Pulse Resp BP Pulse Ox O2 Del Method 97.9 F 91 18 116/86 98 Room Air 01/25/24 09:32 01/25/24 09:32 01/25/24 09:32 01/25/24 09:32 01/25/24 09:32 01/25/24 09:32 Preop Diagnosis: Lumbar stenosis with neurogenic claudication Operation Date: 01/25/24 11:15 Proposed Procedures p Lumbar Spine Decompression Lumbar Decompression(Not Applicable) - Agustin Griffin, DO Familial anesthetic complications: None Was Beta Lisbet taken within 24 hours: N/A Was Clonidine taken within 24 hours: N/A Last intake: Intake Last Liquid Date 01/24/24 Last Liquid Time 19:30 Last Solid Date 01/24/24 Last Solid Time 19:30 Social Tobacco (Chews) and No alcohol Exam alert, oriented x 3, clear to auscultation bilaterally and regular rate & rhythm Airway Mallampati: Class III Dentition: chipped and partials CV/HEM Hypertension Metabolic Hyperlipidemia Anesthetic Plan ASA status: 2 Anesthesia: General Risk of > 500 ml blood loss (7ml/kg in children): No Medications/Allergies Home Medications Medication Instructions Recorded Confirmed Last Taken Type buspirone 30 mg tablet 30 mg PO BID #180 tabs 02/02/22 01/24/24 01/24/24 Rx intraoperative neuromonitoring #1 ea 06/28/22 12/06/23 Unknown Rx Bone growth stimulator #1 ea 01/26/23 12/06/23 Unknown Rx amlodipine 10 mg tablet 10 mg PO QPM 06/07/23 01/24/24 01/24/24 History metoprolol tartrate 50 mg tablet 50 mg PO QPM 06/07/23 01/24/24 01/24/24 History tramadol 50 mg tablet 50 mg PO Q8H PRN pain 30 days #60 01/07/24 01/24/24 01/24/24 Rx tabs simvastatin 10 mg tablet 10 mg PO DAILY 01/25/24 01/25/24 01/24/24 History telmisartan 80 mg tablet 80 mg PO DAILY 01/25/24 01/25/24 01/24/24 07:00 History Allergies Allergy/AdvReac Type Severity Reaction Status Date / Time No Known Allergies Allergy Verified 12/25/23 08:17 Current Medications Generic Name Dose Route Start Last Admin Trade Name Cristal PRN Reason Stop Dose Admin Sodium Chloride 1,000 mls @ 30 mls/hr 01/25/24 09:15 01/25/24 09:51 Sodium Chloride 0.9% IV 01/26/24 09:14 30 mls/hr .Q24H ENE Administration PFSH Anesthesia Medical History HTN (hypertension) Anxiety Hyperlipidemia Family History Father CAD (coronary artery disease) Hypertension Mother Cancer colon cancer Grandmother Stroke CAD (coronary artery disease) Hypertension Family/Other Cancer Diabetes Hypertension Lung disease Stroke Grandfather Diabetes Hypertension Brother Hypertension Denies family history of Dementia Chronic kidney disease (CKD) Social History Smoking and tobacco/nicotine status: never used tobacco/nicotine Alcohol intake: current Alcohol intake frequency: few times a month Substance/Drug Use: never Adopted: No Lives independently: Yes Household members: spouse Housing: House Marital status: Data Anesthesia Cardiac Studies: No Data to Display
--- NOTE | 2024-01-25 11:00 | W.PM.OPSUD ---
Surgery/Procedure H&P Update DATE OF PROCEDURE: January 25, 2024 DATE H&P PERFORMED: 12/25/23 H&P UPDATE INFORMATION: I have reviewed H&P completed within last 30 days, I have examined patient prior to procedure and No changes to prior documentation PREOP DIAGNOSIS: Lumbar stenosis with neurogenic claudication PLANNED PROCEDURE: Operation Date: 01/25/24 11:15 Proposed Procedures p Lumbar Spine Decompression Lumbar Decompression(Not Applicable) - Agustin Griffin DO
[2024-01-25] MEDS: lidocaine-epi 1% 20 mL INJ (11:25)
[2024-01-25] MEDS: ceFAZolin 2,000 mg SDV 2000 MG IVP (11:45)
[2024-01-25] MEDS: lidocaine-epi 1% 20 mL INJ INJECTION (11:55)
--- NOTE | 2024-01-25 12:58 | P.OP_ITS ---
Operative Report Date of procedure: January 25, 2024 Pre-op diagnosis: Lumbar stenosis with neurogenic claudication Post-op diagnosis: same Procedure done: 1. L4-5 laminectomy with partial facetectomy 2. L5-S1 laminectomy with partial facetectomy Surgeon: Agustin Griffin DO Estimated blood loss (mL): 25 Procedure: 1. L4-5 laminectomy with partial facetectomy 2. L5-S1 laminectomy with partial facetectomy Patient is brought to the operative suite. After undergoing anesthesia they are placed in the prone position. All areas of impingement are well padded. Patient is then prepped and draped in the normal sterile fashion. A skin incision is made over the L4/5 level. This is confirmed under c-arm guidance. A series of dilators are passed and the tubular retractor is docked on the L4 lamina. A bovie is used to clear the soft tissue off the lamina and the L 4/5 facet joint. A high speed howard is then used to perform the laminectomy and take down the medial aspect of the L 4/5 facet joint. A kerrison rongeure was then used to take down the remaining lamina and smooth the edge of the laminectomy up to the point where the ligamentum flavum attaches. Attention was then brought to the medial aspect of the facet joint. The remaining medial aspect of the superior and inferior aspect of the facet joint were taken down with the kerrison from the pedicle of L4 to L 5. The facet joint had significant hypertrophy. Attention was then brought to the Ligamentum Flavum. The ligament was taken down from the lamina of L4 to L5 and out medially to the remaining facet joint. The ligament was thick. The dura was then exposed. The dura was in good repair. The L4 nerve was then traced with a curette out the L4/5 foramen and found to be adequately decompressed. The L5 nerve was traced with a curette around the L5 pedicle. The lateral recess was opened with a kerrison helping to further decompress the L5 nerve. Wound is then irrigated copiously with saline and surgiflo is used to stop any bleeding. The tubular retractor is removed skin incision is made over the L5/S1 level. This is confirmed under c-arm guidance. A series of dilators are passed and the tubular retractor is docked on the L5 lamina. A bovie is used to clear the soft tissue off the lamina and the L 5/S1 facet joint. A high speed howard is then used to perform the laminectomy and take down the medial aspect of the L5/C2rxubi joint. A kerrison rongeure was then used to take down the remaining lamina and smooth the edge of the laminectomy up to the point where the ligamentum flavum attaches. Attention was then brought to the medial aspect of the facet joint. The remaining medial aspect of the superior and inferior aspect of the facet joint were taken down with the kerrison from the pedicle of L5 to S1. The facet joint had significant hypertrophy. Attention was then brought to the Ligamentum Flavum. The ligament was taken down from the lamina of L5 to S1 and out medially to the remaining facet joint. The ligament was thick. The dura was then exposed. The dura was in good repa ir. The L5 nerve was then traced with a curette out the L5/S1 foramen and found to be adequately decompressed. The S1 nerve was traced with a curette around the S1 pedicle. The lateral recess was opened with a kerrison helping to further decompress the S1 nerve. Wound is then irrigated copiously with saline and surgiflo is used to stop any bleeding. The tubular retractor is removed and the wound is closed with vicryl and monocryl suture. Glue is then used to protect the wound. A sterile dressing is then placed. Patient was then placed in the supine position and transferred to the PACU in stable condition.
[2024-01-25] MEDS: fentaNYL 50 mcg/mL INJ 2mL IVP ×2 (13:10→13:25)
--- NOTE | 2024-01-25 13:34 | XR_ITS ---
WS: [id number] XR lumbar spine 1V 84123 REASON FOR EXAM: or pic, decompression FINDINGS: Localization of the left L5-S1 disc space and surgery. XR/XR lumbar spine 1V 87180 IMPRESSION: Lumbar localization as above.
[2024-01-25] MEDS: HYDROcodone-acetaminophen 5-325 mg Tablet 1 TAB PO (14:12)
--- NOTE | 2024-01-25 14:35 | ANE.PACU2 ---
Inpatient post-anesthesia follow up: Airway intact: Yes Vital signs: Temperature 97.8 F Pulse Rate 59 Respiratory Rate 16 Blood Pressure 122/80 Pulse Oximetry 95 Oxygen Delivery Me thod Room Air Oxygen Flow Rate Fraction of Inspir ed Oxygen Hydration adequate: Yes Nausea and vomiting: No Pain level: 1 Mental status: Baseline
== END | disposition home or self-care (01) ==
PROVIDERS: PCP Nurse Practitioner Family; Visit Provider Orthopaedic Surgery
PROC: (CPT 63005; principal; 2024-01-25 10:55)
DX: M48.062 Spinal stenosis, lumbar region with neurogenic claudication (principal); F17.220 Nicotine dependence, chewing tobacco, uncomplicated; I10 Essential (primary) hypertension; E78.5 Hyperlipidemia, unspecified; F41.9 Anxiety disorder, unspecified
CPT/HCPCS: 63047; 63048; 72020; 76000; J0690; J1100; J1171; J2250; J2405; J2704; J2710; J3010; J3490; J7030

== ENCOUNTER → 2024-02-19 13:57 | Outpatient (BNVA) | payer OTHER, SELFPAY | PROVIDERS: PCP Nurse Practitioner Family; Visit Provider Nurse Practitioner Family | DX: E78.2 Mixed hyperlipidemia (principal) | CPT/HCPCS: 80061 ==

== ENCOUNTER → 2024-05-22 08:22 | Outpatient (BNVA) | payer MEDICAID, SELFPAY | PROVIDERS: PCP Nurse Practitioner Family; Visit Provider Nurse Practitioner Family | DX: E78.2 Mixed hyperlipidemia (principal) | CPT/HCPCS: 80061 ==

== ENCOUNTER → 2024-08-21 08:25 | Outpatient (BNVA) | payer MEDICAID, SELFPAY | PROVIDERS: PCP Nurse Practitioner Family; Visit Provider Orthopaedic Surgery | DX: M54.9 Dorsalgia, unspecified (principal); M54.2 Cervicalgia | CPT/HCPCS: 72040; 72072; 72100 ==

== ENCOUNTER → 2025-01-22 08:34 | Outpatient (BNVA) | payer MEDICAID, SELFPAY | PROVIDERS: PCP Nurse Practitioner Family; Visit Provider Nurse Practitioner Family | DX: Z79.899 Other long term (current) drug therapy (principal) | CPT/HCPCS: 80053 ==